=== PATIENT | male | born 1975 | race Caucasian/White ===

== ENCOUNTER → 2016-05-30 | Outpatient (CLI) | payer BC ==
--- NOTE | 2016-05-30 11:18 | DIAGNOSTIC IMAGING REPORT ---
CHEST 2 VIEWS ROUTINE CLINICAL HISTORY: Atypical chest pain COMPARISON STUDY: No previous studies for comparison. FINDINGS: The cardiac and mediastinal contours are normal. There is no evidence of focal pulmonary consolidation. There is no evidence of failure. No pleural effusions are visualized.[ There is a pectus excavatum deformity. IMPRESSION: Rectus excavatum deformity. No active disease in the chest. Electronically signed by: Ernesto Curtis M.D. 05/30/2016 11:17 AM Dictated Date/Time: 05/30/2016 11:17 AM
== END | disposition home or self-care (01) ==
LOC: C.RAD1850 11:01
PROVIDERS: ATTEND Family Medicine Hospice and Palliative Medicine
DX: R07.9 Chest pain, unspecified (principal)

== ENCOUNTER 2016-07-22 04:59 | Emergency (ER) | payer BC ==
[~2016-07-22] VITALS: Ht 188 cm; Wt 66.7 kg
[2016-07-22 05:03] VITALS: TEMP 36.9; Ht 188 cm; Wt 66.7 kg
--- NOTE | 2016-07-22 05:20 | EMERGENCY ROOM VISIT NOTE ---
History Report prepared by Franco: Lynette Alba Under the Supervision of: Dr. Marycruz Laureano D.O. 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 The patient states that his pain has occurred few times over the past few months. The patient states that he was seen for his episodes where he was told it might be anxiety and then his second examination had more pain with his breathing and was told it might be pericarditis. The patient states he then had a negative stress test. The patient states that yesterday when he was at the gym his chest discomfort returned and it felt like he was exerting himself more than he was. He states that he went home and to sleep and woke up with tingling in his left arm. The patient states that he has had an increase in stress recently. The patient denies any urinary symptoms, or problems having bowel movements or having any leg pain or swelling. He states that his father has history of an arrhythmia while his grandfather has history of a stroke. 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 Patient denies any problems with bowel movements, leg pain or swelling. Review of Systems See HPI for pertinent positives & negatives. A total of 10 systems reviewed and were otherwise negative. Past Medical & Surgical Medical Problems: (1) Anxiety Family History Stroke Social History Smoking Status: Former Smoker Drug Use: none Marital Status: Housing Status: lives with family Occupation Status: employed Current/Historical Medications No Active Prescriptions or Reported Meds Allergies Uncoded Allergies: PEACHES, PLUMS, CHERRIES, FIGS (Allergy, Intermediate, ITCHY THROAT & TONGUE, 04/21/14) WALNUTS, MIRA NUTS (Allergy, Intermediate, ITCHT THROAT & TONGUE, 04/21/14 ) Physical Exam Vital Signs Date Time Temp Pulse Resp B/P Pulse Ox O2 Delivery O2 Flow Rate FiO2 07/22/16 06:23 68 20 110/88 100 07/22/16 05:15 Room Air 07/22/16 05:15 78 07/22/16 05:03 36.9 67 20 126/85 100 Room Air Physical Exam HEENT: Head - normocephalic and atraumatic. Pupils are equal, round, and reactive to light. Extraocular eye muscles are intact and sclera are anicteric. Ears - bilaterally patent canals with noninjected tympanic membranes and no evidence of hemotympanum. Nose - moist nasal mucosa without discharge. Mouth - moist buccal mucosa. Oropharynx is nonerythematous and there is no tonsillar exudate or edema noted. Neck: Supple; no JVD, nuchal rigidity, cervical lymphadenopathy, or auscultated bruits. Heart: Regular rate and rhythm. There is a normal S1 and S2 with no murmurs, clicks, or gallops appreciated. Lungs: Clear to auscultation bilaterally with no wheezes, rales, or rhonchi. Abdomen: Soft, completely nontender, nondistended, with good bowel sounds. There are no palpable pulsatile masses or hepatosplenomegaly. There is no guarding, rigidity, or rebound noted. Extremities: No evidence of cyanosis, clubbing, or edema. There are easily palpable peripheral pulses. Neuro:The patient is awake and alert, oriented to day, time, and place. Muscle strength is 5/5 in all 4 extremities. 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 There are no cerebellar signs. The patient has no decreased sensation in his arms and legs. Medical Decision & Procedures ER Provider Diagnostic Interpretation: X-ray results as stated below per interpretation by me and the radiologist: Chest X-Ray: Narrow mediastinum No Cardiomegaly No pulmonary pathology. Laboratory Results 07/22/16 05:10 07/22/16 05:10 Test 07/22/16 05:10 Red Blood Count 5.18 M/uL (4.7-6.1) Mean Corpuscular Volume 86.1 fL (80-100) Mean Corpuscular Hemoglobin 30.1 pg (25-34) Mean Corpuscular Hemoglobin Concent 35.0 g/dl (32-36) RDW Standard Deviation 39.9 fL (36.4-46.3) RDW Coefficient of Variation 12.6 % (11.5-14.5) Mean Platelet Volume 11.5 fL (7.4-10.4) Erythrocyte Sedimentation Rate 2 mm/hr (0-14) D-Dimer 260 ug/L FEU (0-500) Anion Gap 7.0 mmol/L (3-11) Est Creatinine Clear Calc Drug Dose 92.6 ml/min Estimated GFR () 108.6 Estimated GFR (Non- 93.7 BUN/Creatinine Ratio 20.2 (10-20) Calcium Level 8.8 mg/dl (8.5-10.1) Total Bilirubin 2.2 mg/dl (0.2-1) Direct Bilirubin 0.3 mg/dl (0-0.2) Aspartate Amino Transf (AST/SGOT) 11 U/L (15-37) Alanine Aminotransferase (ALT/SGPT) 22 U/L (12-78) Alkaline Phosphatase 55 U/L (45-117) Total Creatine Kinase 93 U/L (39-308) Creatine Kinase MB < 0.5 ng/ml (0.5-3.6) Creatine Kinase MB Ratio (0-3.0) Troponin I < 0.015 ng/ml (0-0.045) Total Protein 7.5 gm/dl (6.4-8.2) Albumin 4.4 gm/dl (3.4-5.0) Lipase 144 U/L (73-393) Laboratory results per my review. ECG Indication: chest pain Rate (beats per minute): 66 Rhythm: normal sinus Findings: no acute ischemic change, no ectopy ED Course 0512: Past medical records reviewed. The patient was evaluated in room A3. A complete history and physical exam was performed. A twelve-lead EKG was obtained. An IV lock was initiated and labs are drones above. A chest x-ray was performed and was unremarkable. 0611: Upon reevaluation, the patient was feeling better and hemodynamically stable. I discussed findings and results with him. He verbalized agreement of the treatment plan. The patient was discharged home. Medical Decision The patient is a year 40 old male who presents to the ED with chest pain. Differential diagnosis includes but is not limited to anxiety, pericarditis, cardiac ischemia, TIA, CVA and cardiac dysrhythmia. Labs: SAID rate 2 No Leukocytosis D-Dimer 260 BUN 20 Creatinine 1 Glucose 90 Total Bilirubin 2.2 Direct Bilirubin 0.3 Lipase normal Cardiac enzymes are negative. This is a 40-year-old male patient presents to the emergency department with some vague complaints of left-sided chest discomfort. The patient explains that he awoke from sleep with numbness and tingling in both his left arm and left leg. Upon presentation to the emergency department, the left leg symptoms have resolved. He noted that when he awoke and moved his left arm around that the symptoms seemed to decrease. He still describes some tingling sensation in his left hand. The patient notes that he has chronic elevation of his bilirubins. Have encouraged the patient to limit strenuous activity over the next couple of days. He can use NSAIDs for pain. He was told to return here to the emergency department if he developed worsening symptoms. Otherwise, he can follow up with his PCP. We did talk about the possibility of anxiety. I do not suspect pericarditis as the patient's sedimentation rate was 2. Impression Primary Impression: Atypical chest pain Scribe Attestation The scribe's documentation has been prepared under my direction and personally reviewed by me in its entirety. I confirm that the note above accurately reflects all work, treatment, procedures, and medical decision making performed by me. Departure Information Dispostion Home / Self-Care Prescriptions No Active Prescriptions or Reported Meds Referrals Myranda Real D.O. (PCP) Forms HOME CARE DOCUMENTATION FORM, IMPORTANT VISIT INFORMATION Patient Instructions My [facility] Additional Instructions Rest. No strenuous activities for next 2-3 days Ibuprofen - 600mg every 6 hours with food for pain Return to the ER if symptoms worsen
[2016-07-22 05:31] LABS: HEMATOCRIT 44.6 % (42-52); MEAN CELL VOLUME 86.1 fL (80-100); MEAN CORPUSCULAR HEMOGLOBIN 30.1 pg (25-34); MEAN PLATELET VOLUME 11.5 fL (7.4-10.4); PLATELET COUNT 144 K/uL (130-400); RED BLOOD COUNT 5.18 M/uL (4.7-6.1); WHITE BLOOD COUNT 6.78 K/uL (4.8-10.8)
[2016-07-22 05:49] LABS: ALT/SGPT 22 U/L (12-78); AST/SGOT 11 U/L (15-37); BLOOD UREA NITROGEN 20 mg/dl (7-18); BUN/CREATININE RATIO 20.2 (10-20); CALCIUM 8.8 mg/dl (8.5-10.1); CARBON DIOXIDE 30 mmol/L (21-32); CHLORIDE 106 mmol/L (98-107); GLUCOSE 90 mg/dl (70-99); POTASSIUM 3.7 mmol/L (3.5-5.1); SODIUM 143 mmol/L (136-145)
[2016-07-22 05:55] LABS: ALKALINE PHOSPHATASE 55 U/L (45-117)
[2016-07-22 06:23] VITALS: BP 110/88; PULSE 68; O2SAT 100
--- NOTE | 2016-07-22 07:15 | DIAGNOSTIC IMAGING REPORT ---
CHEST ONE VIEW PORTABLE CLINICAL HISTORY: chest pain dyspnea COMPARISON STUDY: 05/30/2016 FINDINGS: The bones soft tissues and hemidiaphragms are normal. The cardiomediastinal silhouette is normal. The lungs are clear. The pulmonary vasculature is normal. IMPRESSION: Negative chest. Electronically signed by: Zia Pickard M.D. 07/22/2016 7:13 AM Dictated Date/Time: 07/22/2016 7:13 AM
== END 2016-07-22 06:26 | disposition home or self-care (01) ==
LOC: C.EDB 05:00 → C.EDA 06:26
DX: R07.89 Other chest pain (principal); F41.9 Anxiety disorder, unspecified; Z82.3 Family history of stroke; Z87.891 Personal history of nicotine dependence

== ENCOUNTER → 2016-07-28 | Outpatient (CLI) | payer BC | END | disposition home or self-care (01) | LOC: C.LAB 08:14 | PROVIDERS: ATTEND Nutritionist | DX: R53.83 Other fatigue (principal) ==